=== PATIENT | female | born 1970 | race Caucasian/White ===

== ENCOUNTER 2017-03-06 11:52 | Emergency (ER) | payer OTHER ==
[~2017-03-06] VITALS: Ht 167.6 cm; Wt 66.7 kg
[~2017-03-06 11:52] MED LIST: AMOX1TAB64 PO; HYDR-3240 PO; HYDR-3307 PO; HYDR-882 PO; IRON PO; LACT1CAP35 PO; MESA400T2 PO; MESA800T2 PO; METH4TAB2; OXYC-229; OXYC-302; OXYC500S PO; OXYC5TAB3 PO; SULF1TAB23
[2017-03-06] MEDS ORDERED: ONDANSETRON 2MG/ML, 2ML IVPush ONE (14:00)
[2017-03-06] MEDS ORDERED: SODIUM CHLORIDE 0.9% 1,000ML IVBOLUS ONE (14:00)
[2017-03-06] MEDS ORDERED: HYDROmorphone 1 MG/ML, 1ML ONE ×2 (14:04→15:30)
[2017-03-06] MEDS ORDERED: ONDANSETRON 2MG/ML, 2ML ONE (14:05)
[2017-03-06] MEDS: HYDROmorphone 1 MG/ML, 1ML IVPush PRN ×2 (14:08→15:33)
[2017-03-06 14:30] LABS: BLOOD UREA NITROGEN 11 mg/dL (7-18)
[2017-03-06 14:32] LABS: ASPARTATE AMINO TRANSFERASE 26 U/L (15-37)
[2017-03-06] MEDS ORDERED: OMNIPAQUE 350 MG/ML, 100ML BOTTLE ONE (15:12)
[2017-03-06 15:57] VITALS: BP 104/65
== END 2017-03-06 15:08 | disposition home or self-care (01) ==
LOC: ED 13:29
DX: A08.39 Other viral enteritis (principal); E86.0 Dehydration; I10 Essential (primary) hypertension; Z90.49 Acquired absence of other specified parts of digestive tract; Z90.710 Acquired absence of both cervix and uterus; Z88.5 Allergy status to narcotic agent; Z88.6 Allergy status to analgesic agent
CPT/HCPCS: 36415; 74177; 80053; 81003; 83690; 85025; 96361; 96374; 96375; 96376; 99285; J1170; J2405; J7030; Q9967

== ENCOUNTER 2017-05-17 12:00 | Emergency (ER) | payer OTHER ==
[~2017-05-17] VITALS: Ht 167.6 cm; Wt 66.0 kg
[2017-05-17] MEDS ORDERED: SODIUM CHLORIDE 0.9% 1,000ML IVBOLUS ONE (13:00)
[2017-05-17] MEDS ORDERED: SODIUM CHLORIDE FLUSH 10ML SYR IVF ONE (13:00)
[2017-05-17] MEDS ORDERED: ONDANSETRON 2MG/ML, 2ML IVPush ONE (13:00)
[2017-05-17] MEDS ORDERED: KETOROLAC 30 MG/1 ML IVPush ONE (13:00)
[2017-05-17 13:05] LABS: HEMATOCRIT 37.8 % (34.6-47.8); HEMOGLOBIN 12.4 g/dL (11.7-16.4); WHITE BLOOD COUNT 4.9 x10^3/uL (3.4-10)
[2017-05-17] MEDS ORDERED: FENTANYL PF 100 MCG/2ML ONE (13:18)
[2017-05-17] MEDS ORDERED: ONDANSETRON 2MG/ML, 2ML ONE (13:18)
[2017-05-17 13:19] LABS: BLOOD UREA NITROGEN 11 mg/dL (7-18)
[2017-05-17 13:24] LABS: ASPARTATE AMINO TRANSFERASE 9 U/L (15-37)
[2017-05-17] MEDS ORDERED: FENTANYL PF 100 MCG/2ML IV ONE (13:30)
[2017-05-17 13:51] VITALS: BP 108/59
== END 2017-05-17 14:31 | disposition home or self-care (01) ==
LOC: ED 14:15
DX: K59.00 Constipation, unspecified (principal); K50.90 Crohn's disease, unspecified, without complications; G89.29 Other chronic pain; M54.9 Dorsalgia, unspecified; I10 Essential (primary) hypertension; F17.200 Nicotine dependence, unspecified, uncomplicated; Z90.49 Acquired absence of other specified parts of digestive tract; Z90.710 Acquired absence of both cervix and uterus
CPT/HCPCS: 36415; 74020; 80053; 83690; 85025; 85610; 96361; 96374; 96375; 99285; J2405; J3010; J7030

== ENCOUNTER 2017-08-14 17:02 | Inpatient (IN) | payer OTHER ==
[~2017-08-14] VITALS: Ht 167.6 cm; Wt 69.6 kg
[~2017-08-14 17:02] MED LIST changes: -OXYC-229; +OXYC-307
[2017-08-14] MEDS ORDERED: MESA800T2 PO (17:32)
[2017-08-14] MEDS ORDERED: SODIUM CHLORIDE 0.9% 1,000ML IVBOLUS ONE (18:00)
[2017-08-14] MEDS ORDERED: FAMOTIDINE 20 MG/2 ML IVP ONE (18:00)
[2017-08-14] MEDS ORDERED: SODIUM CHLORIDE FLUSH 10ML SYR IVF ONE (18:00)
[2017-08-14] MEDS ORDERED: HYDROmorphone 1 MG/ML, 1ML IV ONE ×2 (18:00→21:00)
[2017-08-14] MEDS ORDERED: ONDANSETRON 2MG/ML, 2ML IVPush ONE ×2 (18:00→21:00)
[2017-08-14] MEDS ORDERED: FAMOTIDINE 20 MG/2 ML ONE (18:24)
[2017-08-14] MEDS ORDERED: HYDROmorphone 1 MG/ML, 1ML ONE ×3 (18:24→20:36)
[2017-08-14] MEDS ORDERED: ONDANSETRON 2MG/ML, 2ML ONE ×2 (18:24→20:36)
[2017-08-14] MEDS ORDERED: BIFI4CAP PO (18:34)
[2017-08-14 18:37] LABS: HEMATOCRIT 36.7 % (34.6-47.8); HEMOGLOBIN 12.1 g/dL (11.7-16.4); WHITE BLOOD COUNT 4.6 x10^3/uL (3.4-10)
[2017-08-14 18:40] LABS: BLOOD UREA NITROGEN 11 mg/dL (7-18)
[2017-08-14 18:46] LABS: ASPARTATE AMINO TRANSFERASE 11 U/L (15-37)
[2017-08-14] MEDS ORDERED: PROMETHAZINE 25 MG/ML, 1ML ONE (19:49)
[2017-08-14] MEDS ORDERED: HYDROcodone/APAP 5/325 TABLET ONE (19:50)
[2017-08-14] MEDS ORDERED: PROMETHAZINE 25 MG/ML, 1ML IM ONE (20:00)
[2017-08-14] MEDS ORDERED: HYDROcodone/APAP 5/325 TABLET PO ONE (20:00)
[2017-08-14] MEDS ORDERED: METOCLOPRAMIDE 5 MG/ML, 2ML ONE (21:07)
[2017-08-14] MEDS ORDERED: METOCLOPRAMIDE 5 MG/ML, 2ML IVPush ONE (21:30)
[2017-08-14] MEDS ORDERED: hydrALAzine 20 MG/ML, 1ML IVPush PRN (21:30)
[2017-08-14] MEDS: SODIUM CHLORIDE 0.9% 1,000 ML IV SCH (22:52)
[2017-08-14] MEDS: METRONIDAZOLE PMX 500MG/100ML 100 ML IV SCH (23:13)
[2017-08-14] MEDS: ENOXAPARIN 40 MG/0.4 ML SQ SCH (23:13)
[2017-08-15] MEDS: HYDROmorphone 2 MG/ML, 1ML IVPush PRN ×8 (00:07→23:30)
[2017-08-15] MEDS: methylPREDNISolone SOD SUCC 125 MG/2 ML IVPush SCH ×5 (00:30→20:19)
[2017-08-15] MEDS: LEVOFLOXACIN/PMX 500MG/100ML 100 ML IV SCH ×2 (00:36→23:30)
[2017-08-15 00:39] VITALS: BP 105/66
[2017-08-15 02:26] VITALS: BP 112/76
[2017-08-15] MEDS: LORazepam 2 MG/ML, 1ML IVPush PRN (04:06)
[2017-08-15 05:21] LABS: HEMATOCRIT 33.6 % (34.6-47.8); HEMOGLOBIN 11.3 g/dL (11.7-16.4); WHITE BLOOD COUNT 4.7 x10^3/uL (3.4-10)
[2017-08-15 05:24] LABS: BLOOD UREA NITROGEN 11 mg/dL (7-18)
[2017-08-15 05:29] LABS: ASPARTATE AMINO TRANSFERASE 28 U/L (15-37)
[2017-08-15] MEDS: METRONIDAZOLE PMX 500MG/100ML 100 ML IV SCH ×3 (06:17→22:32)
[2017-08-15] MEDS ORDERED: ONDANSETRON 2MG/ML, 2ML ONE (07:40)
[2017-08-15] MEDS: ONDANSETRON 2MG/ML, 2ML IVPush PRN ×2 (07:46→13:03)
[2017-08-15 07:51] VITALS: BP 95/51
[2017-08-15] MEDS ORDERED: FLU VACC QS2017-18 (36MOS+) UP/PF 0.5 ML IM-VACC ONE (08:00)
[2017-08-15] MEDS: MESALAMINE 400 MG CAPSULE.DR PO SCH ×2 (08:13→20:12)
[2017-08-15] MEDS: PANTOPRAZOLE 40 MG IV IVPush SCH (08:14)
[2017-08-15] MEDS ORDERED: MAGNESIUM SULFATE PMX 2GM/50ML 50 ML IV ONE (09:30)
[2017-08-15] MEDS ORDERED: POTASSIUM PHOSPHATE 44 MEQ in SODIUM CHLORIDE 0.9% 500 ML IV ONE (09:30)
[2017-08-15] MEDS: SODIUM CHLORIDE 0.9% 1,000 ML IV SCH ×2 (13:03→20:12)
[2017-08-15 15:00] VITALS: BP 126/79
[2017-08-15 19:13] VITALS: BP 110/70
[2017-08-15] MEDS: ENOXAPARIN 40 MG/0.4 ML SQ SCH (20:12)
[2017-08-16] MEDS: HYDROmorphone 2 MG/ML, 1ML IVPush PRN ×2 (02:38→08:44)
[2017-08-16 02:43] VITALS: BP 116/72
[2017-08-16] MEDS: methylPREDNISolone SOD SUCC 125 MG/2 ML IVPush SCH ×2 (04:48→12:30)
[2017-08-16] MEDS: LORazepam 2 MG/ML, 1ML IVPush PRN (04:56)
[2017-08-16 05:03] LABS: HEMATOCRIT 34.5 % (34.6-47.8); HEMOGLOBIN 11.3 g/dL (11.7-16.4); WHITE BLOOD COUNT 9.6 x10^3/uL (3.4-10)
[2017-08-16 05:08] LABS: BLOOD UREA NITROGEN 6 mg/dL (7-18)
[2017-08-16 05:12] LABS: ASPARTATE AMINO TRANSFERASE 28 U/L (15-37)
[2017-08-16] MEDS: METRONIDAZOLE PMX 500MG/100ML 100 ML IV SCH (06:16)
[2017-08-16 07:05] VITALS: BP 101/61
[2017-08-16] MEDS: PANTOPRAZOLE 40 MG IV IVPush SCH (08:44)
[2017-08-16] MEDS: MESALAMINE 400 MG CAPSULE.DR PO SCH (08:44)
[2017-08-16] MEDS ORDERED: ACETAMINOPHEN 325 MG TABLET PO PRN (12:00)
[2017-08-16] MEDS ORDERED: METH4TAB2 PO (12:06)
[2017-08-16] MEDS ORDERED: METR500T PO (12:06)
[2017-08-16] MEDS ORDERED: LEVO750T6 PO (12:06)
== END 2017-08-16 12:38 | disposition home or self-care (01) | DRG 386 ==
LOC: ED 18:14 → 4NOR 22:04 → DCLOUNGE 08-16 12:35
PROVIDERS: ADMIT Family Medicine; ATTEND Family Medicine
DX: K50.111 Crohn's disease of large intestine with rectal bleeding (principal); E44.0 Moderate protein-calorie malnutrition; E83.39 Other disorders of phosphorus metabolism; E83.42 Hypomagnesemia; F11.20 Opioid dependence, uncomplicated; Z68.24 Body mass index [BMI] 24.0-24.9, adult; E86.0 Dehydration; F17.200 Nicotine dependence, unspecified, uncomplicated; G89.29 Other chronic pain; M54.9 Dorsalgia, unspecified; F41.9 Anxiety disorder, unspecified; I10 Essential (primary) hypertension; Z80.0 Family history of malignant neoplasm of digestive organs; Z83.3 Family history of diabetes mellitus; Z87.442 Personal history of urinary calculi
CPT/HCPCS: 36415; 74020; 80053; 81003; 83690; 83735; 84100; 84703; 85025; 85651; 86140; 90686; J1170; J1650; J1956; J2405; J2550; C9113; J2060; J2765; J2930; J3475; J7030; J7040; S0028

== ENCOUNTER 2017-09-14 12:28 | Emergency (ER) | payer OTHER ==
[~2017-09-14] VITALS: Ht 167.6 cm; Wt 67.0 kg
[~2017-09-14 12:28] MED LIST changes: +BIFI4CAP PO; +LEVO750T6 PO; +METH4TAB2 PO; +METR500T PO
[2017-09-14] MEDS ORDERED: SODIUM CHLORIDE FLUSH 10ML SYR IVF ONE (14:30)
[2017-09-14] MEDS ORDERED: ONDANSETRON 2MG/ML, 2ML IVPush ONE (14:30)
[2017-09-14] MEDS ORDERED: SODIUM CHLORIDE 0.9% 1,000ML IVBOLUS ONE (14:30)
[2017-09-14] MEDS ORDERED: HYDROmorphone 2 MG/ML, 1ML ONE ×2 (14:48→15:26)
[2017-09-14] MEDS ORDERED: ONDANSETRON 2MG/ML, 2ML ONE (14:48)
[2017-09-14] MEDS: HYDROmorphone 1 MG/ML, 1ML IVPush PRN ×2 (14:52→15:29)
[2017-09-14 15:01] LABS: HEMOGLOBIN 12.5 g/dL (11.7-16.4); WHITE BLOOD COUNT 7.7 x10^3/uL (3.4-10)
[2017-09-14 15:11] LABS: ASPARTATE AMINO TRANSFERASE 10 U/L (15-37); BLOOD UREA NITROGEN 10 mg/dL (7-18)
[2017-09-14 16:05] VITALS: BP 108/66
== END 2017-09-14 16:10 | disposition home or self-care (01) ==
LOC: ED 15:33
DX: K50.90 Crohn's disease, unspecified, without complications (principal); M54.9 Dorsalgia, unspecified; G89.29 Other chronic pain; I10 Essential (primary) hypertension; K59.00 Constipation, unspecified; Z90.49 Acquired absence of other specified parts of digestive tract; Z90.710 Acquired absence of both cervix and uterus
CPT/HCPCS: 36415; 74020; 80053; 83690; 85025; 96361; 96374; 96375; 96376; 99285; J1170; J2405; J7030

== ENCOUNTER 2017-09-16 10:24 | Inpatient (IN) | payer OTHER ==
[~2017-09-16] VITALS: Ht 167.6 cm; Wt 68.0 kg
[2017-09-16] MEDS ORDERED: DIPHENHYDRAMINE 50 MG/ML, 1ML ONE (11:11)
[2017-09-16] MEDS ORDERED: HYDROmorphone 2 MG/ML, 1ML ONE ×3 (11:11→23:27)
[2017-09-16] MEDS ORDERED: METOCLOPRAMIDE 5 MG/ML, 2ML ONE (11:11)
[2017-09-16] MEDS ORDERED: SODIUM CHLORIDE 0.9% 1,000ML IVBOLUS ONE (11:30)
[2017-09-16] MEDS ORDERED: METOCLOPRAMIDE 5 MG/ML, 2ML IVPush ONE (11:30)
[2017-09-16] MEDS ORDERED: SODIUM CHLORIDE FLUSH 10ML SYR IVF ONE (11:30)
[2017-09-16] MEDS ORDERED: DICYCLOMINE 10 MG/ML, 2ML IM ONE (11:30)
[2017-09-16] MEDS ORDERED: DIPHENHYDRAMINE 50 MG/ML, 1ML IVPush ONE (11:30)
[2017-09-16 11:48] LABS: HEMATOCRIT 41.3 % (34.6-47.8); HEMOGLOBIN 13.9 g/dL (11.7-16.4); WHITE BLOOD COUNT 19.5 x10^3/uL (3.4-10)
[2017-09-16 11:55] LABS: BLOOD UREA NITROGEN 14 mg/dL (7-18)
[2017-09-16 12:01] LABS: ASPARTATE AMINO TRANSFERASE 13 U/L (15-37)
[2017-09-16 12:02] LABS: DIFF TOTAL CELLS COUNTED 100 CELL DIFF
[2017-09-16 12:04] LABS: VERIFY COUNTS? YES
[2017-09-16] MEDS: HYDROmorphone 1 MG/ML, 1ML IVPush PRN ×2 (12:43→14:16)
[2017-09-16] MEDS ORDERED: OMNIPAQUE 350 MG/ML, 100ML BOTTLE ONE (13:06)
[2017-09-16] MEDS ORDERED: CIPROFLOXACIN/PMX 400MG/200ML 200 ML IV ONE (14:00)
[2017-09-16] MEDS ORDERED: METRONIDAZOLE PMX 500MG/100ML 100 ML IV ONE (14:00)
[2017-09-16] MEDS ORDERED: METRONIDAZOLE PMX 500MG/100ML 100 ML ONE (14:07)
[2017-09-16] MEDS ORDERED: DICYCLOMINE 10 MG/ML, 2ML ONE (14:08)
[2017-09-16] MEDS ORDERED: HYDROcodone/APAP 5/325 TABLET PO PRN (15:00)
[2017-09-16] MEDS ORDERED: POLYETHYLENE GLYCOL 17 GM PACKET PO PRN (15:00)
[2017-09-16] MEDS ORDERED: ONDANSETRON 2MG/ML, 2ML IVPush PRN (15:00)
[2017-09-16] MEDS ORDERED: LABETALOL 5MG/ML, 20ML IVPush PRN (15:00)
[2017-09-16] MEDS ORDERED: GUAIFENESIN/DM 200-20MG, 10ML UDC PO PRN (15:00)
[2017-09-16] MEDS ORDERED: morphine SULFATE 10 MG/ML, 1ML IVPush PRN (15:00)
[2017-09-16] MEDS ORDERED: ONDANSETRON ODT 4 MG PO PRN (15:00)
[2017-09-16] MEDS: methylPREDNISolone SOD SUCC 40 MG/ML IV SCH (16:50)
[2017-09-16] MEDS: D5%-0.45% NACL 1,000 ML IV SCH (16:55)
[2017-09-16] MEDS: HYDROmorphone 1 MG/ML, 1ML IV PRN ×2 (19:16→23:35)
[2017-09-16 19:24] VITALS: BP 107/64
[2017-09-16] MEDS: MESALAMINE 800 MG PO SCH (21:00)
[2017-09-16] MEDS: CEFTRIAXONE PMX 1GM/50ML 50 ML IV SCH (22:56)
[2017-09-16] MEDS: METRONIDAZOLE PMX 500MG/100ML 100 ML IV SCH (23:34)
[2017-09-17 03:11] VITALS: BP 98/59
[2017-09-17] MEDS ORDERED: HYDROmorphone 2 MG/ML, 1ML ONE ×4 (03:29→20:39)
[2017-09-17] MEDS: methylPREDNISolone SOD SUCC 40 MG/ML IV SCH ×2 (03:37→16:32)
[2017-09-17] MEDS: HYDROmorphone 1 MG/ML, 1ML IV PRN ×5 (03:37→20:43)
[2017-09-17] MEDS: D5%-0.45% NACL 1,000 ML IV SCH ×2 (03:38→11:53)
[2017-09-17 05:13] LABS: HEMOGLOBIN 12.2 g/dL (11.7-16.4); WHITE BLOOD COUNT 14.7 x10^3/uL (3.4-10)
[2017-09-17 05:25] LABS: ASPARTATE AMINO TRANSFERASE 14 U/L (15-37); BLOOD UREA NITROGEN 10 mg/dL (7-18)
[2017-09-17 06:57] VITALS: BP 91/53
[2017-09-17] MEDS: OMEPRAZOLE 20 MG CAPSULE.DR PO SCH (07:45)
[2017-09-17] MEDS: METRONIDAZOLE PMX 500MG/100ML 100 ML IV SCH ×2 (07:45→16:27)
[2017-09-17] MEDS: SENNA/DOCUSATE TABLET PO SCH (07:46)
[2017-09-17] MEDS: MESALAMINE 800 MG PO SCH ×2 (07:46→19:39)
[2017-09-17] MEDS: BIFIDOBACTERIUM INFANTIS 4 MG PO SCH (07:46)
[2017-09-17 12:27] VITALS: BP 110/65
[2017-09-17] MEDS: CEFTRIAXONE PMX 1GM/50ML 50 ML IV SCH (19:42)
[2017-09-17 20:22] VITALS: BP 105/68
[2017-09-18] MEDS: D5%-0.45% NACL 1,000 ML IV SCH (00:01)
[2017-09-18] MEDS ORDERED: HYDROmorphone 2 MG/ML, 1ML ONE ×3 (00:54→08:54)
[2017-09-18] MEDS: HYDROmorphone 1 MG/ML, 1ML IV PRN ×3 (00:59→09:01)
[2017-09-18 01:33] VITALS: BP 104/68
[2017-09-18] MEDS: methylPREDNISolone SOD SUCC 40 MG/ML IV SCH ×2 (04:14→15:22)
[2017-09-18 06:58] LABS: ASPARTATE AMINO TRANSFERASE 9 U/L (15-37); BLOOD UREA NITROGEN 4 mg/dL (7-18)
[2017-09-18 07:23] VITALS: BP 110/70
[2017-09-18] MEDS: BIFIDOBACTERIUM INFANTIS 4 MG PO SCH (08:55)
[2017-09-18] MEDS: MESALAMINE 800 MG PO SCH (08:56)
[2017-09-18] MEDS: OMEPRAZOLE 20 MG CAPSULE.DR PO SCH (09:00)
[2017-09-18] MEDS: SENNA/DOCUSATE TABLET PO SCH (09:00)
[2017-09-18] MEDS: METRONIDAZOLE PMX 500MG/100ML 100 ML IV SCH ×3 (09:00→15:22)
[2017-09-18] MEDS ORDERED: HYDROmorphone 2MG TABLET PO PRN (09:30)
[2017-09-18 10:07] LABS: HEMATOCRIT 35.2 % (34.6-47.8); HEMOGLOBIN 11.7 g/dL (11.7-16.4); WHITE BLOOD COUNT 13.4 x10^3/uL (3.4-10)
[2017-09-18 14:41] VITALS: BP 123/75
[2017-09-18] MEDS ORDERED: METR500T PO (15:27)
[2017-09-18] MEDS ORDERED: CIPR500T87 PO (15:27)
[2017-09-18] MEDS ORDERED: OMEP-110 PO (16:59)
== END 2017-09-18 16:09 | disposition home or self-care (01) | DRG 871 ==
LOC: ED 12:43 → EDIP 13:54 → 3NE 15:49
PROVIDERS: ADMIT Hospitalist; ATTEND Hospitalist
DX: A41.9 Sepsis, unspecified organism (principal); E43 Unspecified severe protein-calorie malnutrition; E87.0 Hyperosmolality and hypernatremia; E87.1 Hypo-osmolality and hyponatremia; F11.20 Opioid dependence, uncomplicated; K50.10 Crohn's disease of large intestine without complications; A09 Infectious gastroenteritis and colitis, unspecified; F17.210 Nicotine dependence, cigarettes, uncomplicated; G89.29 Other chronic pain; I10 Essential (primary) hypertension; K57.90 Diverticulosis of intestine, part unspecified, without perforation or abscess without bleeding; K59.00 Constipation, unspecified; M19.90 Unspecified osteoarthritis, unspecified site; Z80.0 Family history of malignant neoplasm of digestive organs; Z87.442 Personal history of urinary calculi; Z90.710 Acquired absence of both cervix and uterus; Z90.49 Acquired absence of other specified parts of digestive tract; Z68.24 Body mass index [BMI] 24.0-24.9, adult; Z88.5 Allergy status to narcotic agent; Z88.8 Allergy status to other drugs, medicaments and biological substances
CPT/HCPCS: 36415; 74177; 80053; 81003; 83605; 83690; 83735; 84703; 85025; 86140; 87040; 87324; J0696; J0744; J1170; J2405; Q9967; J0500; J1200; J2765; J2920; J7030

== ENCOUNTER 2017-09-24 18:16 | Emergency (ER) | payer OTHER ==
[~2017-09-24] VITALS: Ht 170.2 cm; Wt 64.0 kg
[~2017-09-24 18:16] MED LIST changes: +CIPR500T87 PO; +OMEP-110 PO
[2017-09-24] MEDS ORDERED: ONDANSETRON 2MG/ML, 2ML IVPush ONE (19:00)
[2017-09-24] MEDS ORDERED: SODIUM CHLORIDE 0.9% 1,000ML IVBOLUS ONE (19:00)
[2017-09-24] MEDS ORDERED: SODIUM CHLORIDE FLUSH 10ML SYR IVF ONE (19:00)
[2017-09-24] MEDS ORDERED: ONDANSETRON 2MG/ML, 2ML ONE (19:14)
[2017-09-24] MEDS ORDERED: HYDROmorphone 2 MG/ML, 1ML ONE ×2 (19:15→20:55)
[2017-09-24 19:16] LABS: BASOPHILS # (AUTO) 0.02 x10^3/uL (0-0.1); BASOPHILS % (AUTO) 0 % (0-1); EOSINOPHILS # (AUTO) 0.05 x10^3/uL (0-0.4); EOSINOPHILS % (AUTO) 1 % (1-7); LYMPHOCYTES % (AUTO) 21 % (22-44); MD NO; MEAN CORPUSCULAR HGB CONC 32.6 g/dL (32.4-35.8); MONOCYTES # (AUTO) 0.76 x10^3/uL (0.2-0.8); MONOCYTES % (AUTO) 14 % (2-9); NEUTROPHILS % (AUTO) 64 % (42-75); PLATELET COUNT 430 x10^3/uL (130-400); RED BLOOD COUNT 4.18 x10^6/uL (3.82-5.3); RED CELL DISTRIBUTION WIDTH 14.6 % (9.6-15.2)
[2017-09-24 19:25] LABS: ALANINE AMINOTRANSFERASE 18 U/L (12-78); ALBUMIN 3.3 g/dL (3.4-5.0); ANION GAP 11 mmol/L (5-15); CALCIUM 8.4 mg/dL (8.5-10.1); CHLORIDE 107 mmol/L (98-107); CREATININE 0.74 mg/dL (0.55-1.02)
[2017-09-24 19:30] LABS: ALKALINE PHOSPHATASE 67 U/L (45-117); BILIRUBIN,TOTAL 0.3 mg/dL (0.2-1.0); TOTAL PROTEIN 7.4 g/dL (6.4-8.2)
[2017-09-24] MEDS ORDERED: HYDROmorphone 1 MG/ML, 1ML IV ONE (19:30)
[2017-09-24] MEDS ORDERED: OMNIPAQUE 350 MG/ML, 100ML BOTTLE ONE (20:00)
[2017-09-24] MEDS ORDERED: DICYCLOMINE 10 MG/ML, 2ML ONE (21:21)
[2017-09-24 21:28] LABS: MICROSCOPIC NOT IND
[2017-09-24 21:30] LABS: CULTURE INDICATED? NO
[2017-09-24] MEDS ORDERED: HYDROmorphone 1 MG/ML, 1ML IVPush PRN (21:30)
[2017-09-24] MEDS ORDERED: DICYCLOMINE 10 MG/ML, 2ML IM ONE (21:30)
[2017-09-24 21:54] VITALS: BP 136/82
== END 2017-09-24 21:59 | disposition home or self-care (01) ==
LOC: ED 19:50
DX: K52.9 Noninfective gastroenteritis and colitis, unspecified (principal); K59.00 Constipation, unspecified; I10 Essential (primary) hypertension; G89.29 Other chronic pain; F17.210 Nicotine dependence, cigarettes, uncomplicated
CPT/HCPCS: 36415; 74020; 74177; 80053; 81003; 83690; 84703; 85025; 96361; 96372; 96374; 96375; 96376; 99285; J0500; J1170; J2405; J7030; Q9967

== ENCOUNTER 2018-01-12 18:23 | Emergency (ER) | payer OTHER ==
[~2018-01-12] VITALS: Ht 167.6 cm; Wt 65.4 kg
[2018-01-12] MEDS ORDERED: METOCLOPRAMIDE 5 MG/ML, 2ML IVPush ONE (19:30)
[2018-01-12] MEDS ORDERED: SODIUM CHLORIDE 0.9% 1,000ML IVBOLUS ONE (19:30)
[2018-01-12] MEDS ORDERED: FENTANYL PF 100 MCG/2ML IVPush PRN (19:30)
[2018-01-12] MEDS ORDERED: SODIUM CHLORIDE FLUSH 10ML SYR IVF ONE (19:30)
[2018-01-12 19:36] LABS: MICROSCOPIC NOT IND
[2018-01-12] MEDS ORDERED: FENTANYL PF 100 MCG/2ML ONE (19:44)
[2018-01-12] MEDS ORDERED: METOCLOPRAMIDE 5 MG/ML, 2ML ONE (19:44)
[2018-01-12 19:49] LABS: BASOPHILS # (AUTO) 0.06 x10^3/uL (0-0.1); BASOPHILS % (AUTO) 1 % (0-1); EOSINOPHILS # (AUTO) 0.12 x10^3/uL (0-0.4); EOSINOPHILS % (AUTO) 2 % (1-7); LYMPHOCYTES # (AUTO) 2.33 x10^3/uL (1-3.4); LYMPHOCYTES % (AUTO) 32 % (22-44); MD NO; MEAN CORPUSCULAR HEMOGLOBIN 31.8 pg (27.0-34.8); MEAN CORPUSCULAR HGB CONC 33.1 g/dL (32.4-35.8); MEAN PLATELET VOLUME 7.6 fL (7.4-10.4); MONOCYTES # (AUTO) 0.45 x10^3/uL (0.2-0.8); MONOCYTES % (AUTO) 6 % (2-9); NEUTROPHILS # (AUTO) 4.38 x10^3/uL (1.8-6.8); NEUTROPHILS % (AUTO) 60 % (42-75); PLATELET COUNT 381 x10^3/uL (130-400); RED BLOOD COUNT 4.39 x10^6/uL (3.82-5.3); RED CELL DISTRIBUTION WIDTH 14.6 % (9.6-15.2)
[2018-01-12 19:49] LABS: CULTURE INDICATED? NO
[2018-01-12 19:58] LABS: ALBUMIN 4.4 g/dL (3.4-5.0); ANION GAP 8 mmol/L (5-15); CALCIUM 8.8 mg/dL (8.5-10.1); CHLORIDE 107 mmol/L (98-107)
[2018-01-12 20:05] LABS: ALANINE AMINOTRANSFERASE 20 U/L (12-78); ALKALINE PHOSPHATASE 89 U/L (45-117); BILIRUBIN,TOTAL 0.6 mg/dL (0.2-1.0); CREATININE 0.73 mg/dL (0.55-1.02); TOTAL PROTEIN 7.9 g/dL (6.4-8.2)
[2018-01-12 21:10] VITALS: BP 124/81
== END 2018-01-12 21:12 | disposition home or self-care (01) ==
LOC: ED 21:00
DX: R11.2 Nausea with vomiting, unspecified (principal); G89.29 Other chronic pain; M54.9 Dorsalgia, unspecified; I10 Essential (primary) hypertension; K50.90 Crohn's disease, unspecified, without complications; Z90.49 Acquired absence of other specified parts of digestive tract; F17.200 Nicotine dependence, unspecified, uncomplicated
CPT/HCPCS: 36415; 74021; 80053; 81003; 84703; 85025; 96374; 96375; 99285; J2765; J3010; J7030

== ENCOUNTER 2018-06-13 16:55 | Emergency (ER) | payer OTHER ==
[~2018-06-13] VITALS: Ht 170.2 cm; Wt 59.6 kg
[2018-06-13] MEDS ORDERED: SODIUM CHLORIDE 0.9% 1,000 ML IV ONE (17:08)
[2018-06-13 17:48] LABS: ALANINE AMINOTRANSFERASE 219 U/L (12-78); ALBUMIN 3.3 g/dL (3.4-5.0); ANION GAP 7 mmol/L (5-15); CALCIUM 8.1 mg/dL (8.5-10.1); CHLORIDE 111 mmol/L (98-107); CREATININE 0.64 mg/dL (0.55-1.02)
[2018-06-13 17:50] LABS: ALKALINE PHOSPHATASE 79 U/L (45-117); BILIRUBIN,TOTAL 0.4 mg/dL (0.2-1.0); TOTAL PROTEIN 6.5 g/dL (6.4-8.2)
[2018-06-13 17:52] LABS: BASOPHILS # (AUTO) 0.05 x10^3/uL (0-0.1); BASOPHILS % (AUTO) 1 % (0-1); EOSINOPHILS # (AUTO) 0.14 x10^3/uL (0-0.4); EOSINOPHILS % (AUTO) 3 % (1-7); LYMPHOCYTES % (AUTO) 44 % (22-44); MD NO; MEAN CORPUSCULAR HEMOGLOBIN 32.5 pg (27.0-34.8); MEAN CORPUSCULAR HGB CONC 33.1 g/dL (32.4-35.8); MEAN CORPUSCULAR VOLUME 98.1 fL (80-100); MEAN PLATELET VOLUME 7.7 fL (7.4-10.4); MONOCYTES # (AUTO) 0.37 x10^3/uL (0.2-0.8); MONOCYTES % (AUTO) 8 % (2-9); NEUTROPHILS # (AUTO) 2.02 x10^3/uL (1.8-6.8); NEUTROPHILS % (AUTO) 44 % (42-75); PLATELET COUNT 309 x10^3/uL (130-400); RED BLOOD COUNT 4.05 x10^6/uL (3.82-5.3); RED CELL DISTRIBUTION WIDTH 13.3 % (9.6-15.2)
[2018-06-13 18:33] LABS: MICROSCOPIC INDICATED
[2018-06-13 18:54] LABS: CULTURE INDICATED? YES
[2018-06-13] MEDS ORDERED: ONDANSETRON ODT 4 MG ONE (19:00)
[2018-06-13] MEDS ORDERED: HYDROmorphone 2 MG/ML, 1ML IVPush PRN (19:00)
[2018-06-13] MEDS ORDERED: MAGNESIUM CITRATE 300ML ORAL SOL ONE (19:00)
[2018-06-13] MEDS ORDERED: SODIUM CHLORIDE 0.9% 1,000ML IVBOLUS ONE (19:00)
[2018-06-13] MEDS ORDERED: MAGNESIUM CITRATE 300ML ORAL SOL PO ONE (19:00)
[2018-06-13] MEDS ORDERED: ONDANSETRON ODT 4 MG PO ONE (19:00)
[2018-06-13] MEDS ORDERED: HYDROmorphone 2 MG/ML, 1ML ONE ×2 (19:01→20:55)
[2018-06-13] MEDS ORDERED: PROCHLORPERAZINE 5 MG/ML, 2ML ONE (20:55)
[2018-06-13] MEDS ORDERED: PROCHLORPERAZINE 5 MG/ML, 2ML IM ONE (21:00)
[2018-06-13] MEDS ORDERED: HYDROmorphone 2 MG/ML, 1ML IM ONE (21:00)
[2018-06-13 21:56] VITALS: BP 120/84
== END 2018-06-13 22:29 | disposition home or self-care (01) ==
LOC: ED 21:30
DX: K50.10 Crohn's disease of large intestine without complications (principal); K59.00 Constipation, unspecified; R10.84 Generalized abdominal pain; I10 Essential (primary) hypertension; Z90.49 Acquired absence of other specified parts of digestive tract; F17.200 Nicotine dependence, unspecified, uncomplicated
CPT/HCPCS: 36415; 74022; 80053; 81001; 83690; 85025; 87086; 96374; 99285; J1170; Q0162

== ENCOUNTER 2018-07-13 17:10 | Inpatient (IN) | payer OTHER ==
[~2018-07-13] VITALS: Ht 170.2 cm; Wt 63.7 kg
[~2018-07-13 17:10] MED LIST changes: +HYDR-3653 PO; -HYDR-882 PO
[2018-07-13] MEDS ORDERED: SODIUM CHLORIDE 0.9% 1,000ML IVBOLUS ONE (17:30)
[2018-07-13] MEDS ORDERED: FENTANYL PF 100 MCG/2ML IV ONE ×2 (17:30→21:00)
[2018-07-13] MEDS ORDERED: SODIUM CHLORIDE FLUSH 10ML SYR IVF ONE (17:30)
[2018-07-13] MEDS ORDERED: FENTANYL PF 100 MCG/2ML ONE ×2 (17:39→21:01)
[2018-07-13 18:07] LABS: BASOPHILS # (AUTO) 0.02 x10^3/uL (0-0.1); BASOPHILS % (AUTO) 0 % (0-1); EOSINOPHILS # (AUTO) 0.21 x10^3/uL (0-0.4); EOSINOPHILS % (AUTO) 2 % (1-7); LYMPHOCYTES % (AUTO) 12 % (22-44); MD NO; MEAN CORPUSCULAR HEMOGLOBIN 32.3 pg (27.0-34.8); MEAN CORPUSCULAR HGB CONC 33.2 g/dL (32.4-35.8); MEAN CORPUSCULAR VOLUME 97.3 fL (80-100); MEAN PLATELET VOLUME 8.2 fL (7.4-10.4); MONOCYTES # (AUTO) 0.36 x10^3/uL (0.2-0.8); MONOCYTES % (AUTO) 3 % (2-9); NEUTROPHILS # (AUTO) 8.84 x10^3/uL (1.8-6.8); NEUTROPHILS % (AUTO) 82 % (42-75); PLATELET COUNT 172 x10^3/uL (130-400); RED BLOOD COUNT 4.13 x10^6/uL (3.82-5.3); RED CELL DISTRIBUTION WIDTH 13.8 % (9.6-15.2)
[2018-07-13 18:21] LABS: TROPONIN I 0.041 ng/mL (0.000-0.045)
[2018-07-13 18:30] LABS: ALBUMIN 3.5 g/dL (3.4-5.0); ANION GAP 9 mmol/L (5-15); CALCIUM 8.4 mg/dL (8.5-10.1); CHLORIDE 106 mmol/L (98-107)
[2018-07-13 18:45] LABS: ALANINE AMINOTRANSFERASE 3655 U/L (12-78); ALKALINE PHOSPHATASE 149 U/L (45-117); BILIRUBIN,TOTAL 3.7 mg/dL (0.2-1.0); TOTAL PROTEIN 6.3 g/dL (6.4-8.2)
[2018-07-13 19:13] LABS: HCG UR SG 1.018 (1.003-1.030)
[2018-07-13 19:14] LABS: CULTURE INDICATED? YES; MICROSCOPIC INDICATED
[2018-07-13] MEDS ORDERED: POTASSIUM CHLORIDE 40 MEQ in SODIUM CHLORIDE 0.9% 500 ML IV ONE (19:30)
[2018-07-13 22:10] VITALS: BP 110/75
[2018-07-13] MEDS ORDERED: MESALAMINE 800 MG PO SCH (23:30)
[2018-07-13] MEDS ORDERED: POTASSIUM CHLORIDE 20 MEQ TAB.ER.PRT PO ONE (23:30)
[2018-07-13] MEDS ORDERED: LIDODERM 5% PATCH TD PRN (23:30)
[2018-07-13] MEDS ORDERED: ONDANSETRON 2MG/ML, 2ML IVPush PRN (23:30)
[2018-07-14] MEDS: HYDROmorphone 2 MG/ML, 1ML IVPush PRN ×7 (00:38→22:53)
[2018-07-14 01:26] LABS: TROPONIN I 0.035 ng/mL (0.000-0.045)
[2018-07-14 01:42] VITALS: BP 114/75
[2018-07-14 05:29] LABS: ANION GAP 8 mmol/L (5-15); CALCIUM 8.1 mg/dL (8.5-10.1); CHLORIDE 107 mmol/L (98-107); CREATININE 0.53 mg/dL (0.55-1.02)
[2018-07-14 08:15] VITALS: BP 127/80
[2018-07-14] MEDS: MESALAMINE 800 MG HOMEMEDPO SCH ×2 (08:16→21:00)
[2018-07-14] MEDS: FLORASTOR 250 MG CAPSULE PO SCH (08:16)
[2018-07-14] MEDS: OMEPRAZOLE 20 MG CAPSULE.DR PO SCH (08:16)
[2018-07-14] MEDS ORDERED: MAGNESIUM SULFATE PMX 2GM/50ML 50 ML IV ONE (09:30)
[2018-07-14] MEDS ORDERED: POTASSIUM CHLORIDE 20 MEQ TAB.ER.PRT PO ONE (09:30)
[2018-07-14 15:16] VITALS: BP 126/85
[2018-07-14 19:43] VITALS: BP 119/79
[2018-07-15 01:17] VITALS: BP 115/75
[2018-07-15] MEDS: HYDROmorphone 2 MG/ML, 1ML IVPush PRN ×3 (04:09→12:27)
[2018-07-15 08:02] VITALS: BP 116/75
[2018-07-15] MEDS: MESALAMINE 800 MG HOMEMEDPO SCH ×2 (08:39→21:00)
[2018-07-15 09:41] LABS: ALBUMIN 2.8 g/dL (3.4-5.0); ANION GAP 6 mmol/L (5-15); CALCIUM 7.9 mg/dL (8.5-10.1); CHLORIDE 109 mmol/L (98-107); CREATININE 0.45 mg/dL (0.55-1.02)
[2018-07-15 09:48] LABS: ALANINE AMINOTRANSFERASE 1985 U/L (12-78); ALKALINE PHOSPHATASE 127 U/L (45-117); BILIRUBIN,TOTAL 1.4 mg/dL (0.2-1.0); TOTAL PROTEIN 5.4 g/dL (6.4-8.2)
[2018-07-15 09:49] LABS: BASOPHILS # (AUTO) 0.02 x10^3/uL (0-0.1); BASOPHILS % (AUTO) 0 % (0-1); EOSINOPHILS # (AUTO) 0.42 x10^3/uL (0-0.4); EOSINOPHILS % (AUTO) 8 % (1-7); LYMPHOCYTES # (AUTO) 1.45 x10^3/uL (1-3.4); LYMPHOCYTES % (AUTO) 27 % (22-44); MD NO; MEAN CORPUSCULAR HEMOGLOBIN 31.7 pg (27.0-34.8); MEAN CORPUSCULAR HGB CONC 32.7 g/dL (32.4-35.8); MEAN CORPUSCULAR VOLUME 97.1 fL (80-100); MEAN PLATELET VOLUME 7.9 fL (7.4-10.4); MONOCYTES # (AUTO) 0.18 x10^3/uL (0.2-0.8); MONOCYTES % (AUTO) 3 % (2-9); NEUTROPHILS # (AUTO) 3.42 x10^3/uL (1.8-6.8); NEUTROPHILS % (AUTO) 62 % (42-75); PLATELET COUNT 154 x10^3/uL (130-400); RED BLOOD COUNT 3.77 x10^6/uL (3.82-5.3); RED CELL DISTRIBUTION WIDTH 14.1 % (9.6-15.2)
[2018-07-15] MEDS: OMEPRAZOLE 20 MG CAPSULE.DR PO SCH (10:42)
[2018-07-15] MEDS: FLORASTOR 250 MG CAPSULE PO SCH (10:42)
[2018-07-15 12:17] VITALS: BP 115/73
[2018-07-15] MEDS: HYDROcodone/APAP 10/325 MG TABLET PO PRN ×2 (16:18→20:27)
[2018-07-15 19:09] VITALS: BP 118/79
[2018-07-16] MEDS: HYDROcodone/APAP 10/325 MG TABLET PO PRN ×2 (00:46→04:54)
[2018-07-16 01:01] VITALS: BP 113/74
[2018-07-16 05:47] LABS: ALBUMIN 2.2 g/dL (3.4-5.0); ANION GAP 7 mmol/L (5-15); CHLORIDE 113 mmol/L (98-107)
[2018-07-16 05:57] LABS: ALANINE AMINOTRANSFERASE 1285 U/L (12-78); ALKALINE PHOSPHATASE 113 U/L (45-117); BILIRUBIN,TOTAL 1.2 mg/dL (0.2-1.0); CALCIUM 7.6 mg/dL (8.5-10.1); TOTAL PROTEIN 4.8 g/dL (6.4-8.2)
[2018-07-16 05:59] LABS: AMPHETAMINE SCREEN, URINE Negative (Negative); BARBITURATE SCREEN, URINE Negative (Negative)
[2018-07-16 06:03] LABS: MEAN CORPUSCULAR HEMOGLOBIN 32.4 pg (27.0-34.8); MEAN CORPUSCULAR HGB CONC 33.3 g/dL (32.4-35.8); MEAN CORPUSCULAR VOLUME 97.3 fL (80-100); MEAN PLATELET VOLUME 8.3 fL (7.4-10.4); PLATELET COUNT 146 x10^3/uL (130-400); RED BLOOD COUNT 3.37 x10^6/uL (3.82-5.3); RED CELL DISTRIBUTION WIDTH 14.1 % (9.6-15.2)
[2018-07-16 06:03] LABS: BENZODIAZEPINE SCREEN, URINE Negative (Negative); CANNABINOID SCREEN, URINE Negative (Negative); COCAINE SCREEN, URINE Negative (Negative); METHADONE SCREEN, URINE Negative (Negative); OPIATE SCREEN, URINE Positive (Negative)
[2018-07-16 06:52] VITALS: BP 100/65
[2018-07-16] MEDS ORDERED: SODIUM CHLORIDE 0.45% 1,000 ML IV SCH (07:00)
[2018-07-16 07:01] LABS: MD YES
[2018-07-16 07:05] LABS: <PLATELET ESTIMATE> ADEQUATE; <PLT MORPHOLOGY> NORMAL PLT MORPH; <RBC MORPHOLOGY> NORMAL; EOS#(MANUAL) 0.34 x10^3/uL (0.0-0.4); EOS% (MANUAL) 10 % (1-7); LYMPHS% (MANUAL) 44 % (22-44); MONOS#(MANUAL) 0.14 x10^3/uL (0.3-2.7); MONOS% (MANUAL) 4 % (2-9); SEG#(MANUAL) 1.43 x10^3/uL (1.8-6.8); SEGS% (MANUAL) 42 % (42-75)
[2018-07-16 07:36] LABS: INTERNATIONAL NORMALIZED RATIO 1.2 (0.93-1.1); PROTHROMBIN TIME 12.3 Seconds (9.6-11.5)
[2018-07-16] MEDS: OMEPRAZOLE 20 MG CAPSULE.DR PO SCH (09:00)
[2018-07-16] MEDS: OXYcodone IR 5MG TABLET PO PRN ×3 (09:00→19:56)
[2018-07-16] MEDS: FLORASTOR 250 MG CAPSULE PO SCH (09:00)
[2018-07-16] MEDS: POTASSIUM CHLORIDE 20 MEQ TAB.ER.PRT PO SCH ×2 (09:00→17:50)
[2018-07-16] MEDS: MESALAMINE 800 MG HOMEMEDPO SCH ×2 (09:00→21:00)
[2018-07-16] MEDS ORDERED: DEXTROSE 5% IV ONE ×3 (12:30→17:30)
[2018-07-16] MEDS ORDERED: ACETYLCYSTEINE IV ONE ×3 (12:30→17:30)
[2018-07-16] MEDS: HEPARIN 5,000 UNITS/ML, 1ML SQ SCH ×2 (13:00→19:56)
[2018-07-16 13:32] VITALS: BP 110/74
[2018-07-16] MEDS ORDERED: HYDROmorphone 2 MG/ML, 1ML ONE ×2 (17:47→23:05)
[2018-07-16] MEDS ORDERED: HYDROmorphone 1 MG/ML, 1ML IM PRN (18:00)
[2018-07-16 18:36] LABS: ALBUMIN 2.6 g/dL (3.4-5.0); ANION GAP 6 mmol/L (5-15); CALCIUM 7.6 mg/dL (8.5-10.1); CHLORIDE 113 mmol/L (98-107); CREATININE 0.48 mg/dL (0.55-1.02)
[2018-07-16 18:43] LABS: ALANINE AMINOTRANSFERASE 1363 U/L (12-78); ALKALINE PHOSPHATASE 120 U/L (45-117); BILIRUBIN,TOTAL 1.3 mg/dL (0.2-1.0); TOTAL PROTEIN 5.5 g/dL (6.4-8.2)
[2018-07-16] MEDS: DOCUSATE 100 MG CAPSULE PO SCH (19:56)
[2018-07-16 21:48] VITALS: BP 126/86
[2018-07-17 00:59] VITALS: BP 135/89
[2018-07-17] MEDS: HEPARIN 5,000 UNITS/ML, 1ML SQ SCH ×3 (05:17→21:00)
[2018-07-17] MEDS: OXYcodone IR 5MG TABLET PO PRN ×3 (05:18→23:07)
[2018-07-17 05:44] LABS: BASOPHILS # (AUTO) 0.03 x10^3/uL (0-0.1); BASOPHILS % (AUTO) 1 % (0-1); EOSINOPHILS # (AUTO) 0.27 x10^3/uL (0-0.4); EOSINOPHILS % (AUTO) 8 % (1-7); LYMPHOCYTES # (AUTO) 1.96 x10^3/uL (1-3.4); LYMPHOCYTES % (AUTO) 54 % (22-44); MD NO; MEAN CORPUSCULAR HEMOGLOBIN 32.3 pg (27.0-34.8); MEAN CORPUSCULAR VOLUME 97.7 fL (80-100); MEAN PLATELET VOLUME 8.1 fL (7.4-10.4); MONOCYTES # (AUTO) 0.26 x10^3/uL (0.2-0.8); MONOCYTES % (AUTO) 7 % (2-9); NEUTROPHILS # (AUTO) 1.11 x10^3/uL (1.8-6.8); NEUTROPHILS % (AUTO) 31 % (42-75); PLATELET COUNT 148 x10^3/uL (130-400); RED BLOOD COUNT 3.27 x10^6/uL (3.82-5.3); RED CELL DISTRIBUTION WIDTH 14.9 % (9.6-15.2)
[2018-07-17 05:55] LABS: ALBUMIN 2.3 g/dL (3.4-5.0); ANION GAP 6 mmol/L (5-15); CALCIUM 7.5 mg/dL (8.5-10.1); CHLORIDE 112 mmol/L (98-107)
[2018-07-17 06:05] LABS: ALANINE AMINOTRANSFERASE 1122 U/L (12-78); ALKALINE PHOSPHATASE 103 U/L (45-117); BILIRUBIN,TOTAL 1.1 mg/dL (0.2-1.0); CREATININE 0.36 mg/dL (0.55-1.02)
[2018-07-17 06:34] VITALS: BP 105/65
[2018-07-17] MEDS ORDERED: MAGNESIUM SULFATE PMX 2GM/50ML 50 ML IV ONE (07:00)
[2018-07-17] MEDS: MESALAMINE 800 MG HOMEMEDPO SCH ×2 (07:59→21:00)
[2018-07-17] MEDS: OMEPRAZOLE 20 MG CAPSULE.DR PO SCH (08:06)
[2018-07-17] MEDS: FLORASTOR 250 MG CAPSULE PO SCH (08:06)
[2018-07-17] MEDS: POTASSIUM CHLORIDE 20 MEQ TAB.ER.PRT PO SCH ×2 (08:06→17:22)
[2018-07-17] MEDS: DOCUSATE 100 MG CAPSULE PO SCH ×2 (08:06→21:06)
[2018-07-17] MEDS ORDERED: HYDROmorphone 2 MG/ML, 1ML IVPush PRN (10:00)
[2018-07-17] MEDS: HYDROmorphone 2 MG/ML, 1ML IVPush PRN ×3 (10:43→21:32)
[2018-07-17] MEDS ORDERED: ACETYLCYSTEINE IV SCH (11:00)
[2018-07-17] MEDS ORDERED: DEXTROSE 5% IV SCH (11:00)
[2018-07-17 13:06] VITALS: BP 112/72
[2018-07-17] MEDS ORDERED: OMNIPAQUE 350 MG/ML, 100ML BOTTLE ONE (14:24)
[2018-07-17 20:24] VITALS: BP 114/74
[2018-07-17 23:06] VITALS: BP 111/75
[2018-07-18 01:09] VITALS: BP 109/69
[2018-07-18] MEDS: HYDROmorphone 2 MG/ML, 1ML IVPush PRN ×3 (03:16→11:24)
[2018-07-18] MEDS: HEPARIN 5,000 UNITS/ML, 1ML SQ SCH (03:40)
[2018-07-18 05:51] LABS: ALANINE AMINOTRANSFERASE 881 U/L (12-78); ALBUMIN 2.4 g/dL (3.4-5.0); ANION GAP 8 mmol/L (5-15); CALCIUM 8.1 mg/dL (8.5-10.1); CHLORIDE 110 mmol/L (98-107); CREATININE 0.44 mg/dL (0.55-1.02)
[2018-07-18 05:54] LABS: ALKALINE PHOSPHATASE 122 U/L (45-117); BILIRUBIN,TOTAL 0.9 mg/dL (0.2-1.0); TOTAL PROTEIN 5.2 g/dL (6.4-8.2)
[2018-07-18] MEDS ORDERED: MAGNESIUM SULFATE PMX 2GM/50ML 50 ML IV ONE (07:00)
[2018-07-18] MEDS ORDERED: ENOXAPARIN 40 MG/0.4 ML SQ SCH (07:00)
[2018-07-18] MEDS: MESALAMINE 800 MG HOMEMEDPO SCH (07:29)
[2018-07-18] MEDS: FLORASTOR 250 MG CAPSULE PO SCH (07:29)
[2018-07-18] MEDS: OMEPRAZOLE 20 MG CAPSULE.DR PO SCH (07:29)
[2018-07-18] MEDS: DOCUSATE 100 MG CAPSULE PO SCH (07:29)
[2018-07-18 07:34] LABS: MEAN CORPUSCULAR HEMOGLOBIN 31.6 pg (27.0-34.8); MEAN CORPUSCULAR HGB CONC 32.3 g/dL (32.4-35.8); MEAN CORPUSCULAR VOLUME 97.6 fL (80-100); RED BLOOD COUNT 3.23 x10^6/uL (3.82-5.3); RED CELL DISTRIBUTION WIDTH 14.7 % (9.6-15.2)
[2018-07-18 07:50] LABS: BASOPHILS # (AUTO) 0.01 x10^3/uL (0-0.1); BASOPHILS % (AUTO) 0 % (0-1); EOSINOPHILS # (AUTO) 0.34 x10^3/uL (0-0.4); EOSINOPHILS % (AUTO) 9 % (1-7); LYMPHOCYTES % (AUTO) 47 % (22-44); MD SCAN; MEAN PLATELET VOLUME 8.6 fL (7.4-10.4); MONOCYTES # (AUTO) 0.36 x10^3/uL (0.2-0.8); MONOCYTES % (AUTO) 9 % (2-9); NEUTROPHILS # (AUTO) 1.46 x10^3/uL (1.8-6.8); NEUTROPHILS % (AUTO) 36 % (42-75); PLATELET COUNT 138 x10^3/uL (130-400)
[2018-07-18 08:24] VITALS: BP 112/66
[2018-07-18] MEDS ORDERED: POTASSIUM CHLORIDE 20 MEQ TAB.ER.PRT PO SCH (09:00)
[2018-07-18] MEDS ORDERED: MAGNESIUM OXIDE 400 MG TABLET PO SCH (09:00)
[2018-07-18] MEDS ORDERED: OXYC5TAB3 PO (09:39)
[2018-07-18] MEDS ORDERED: DOCU-131 PO (09:39)
[2018-07-18] MEDS ORDERED: MAGN400T50 PO (09:39)
[2018-07-19 15:59] LABS: ANA SCREEN NEGATIVE (Negative)
== END 2018-07-18 11:55 | disposition home or self-care (01) | DRG 918 ==
LOC: ED 18:15 → EDIP 21:01 → 3NE 22:01 → DCLOUNGE 07-18 11:45
PROVIDERS: ADMIT Internal Medicine; ATTEND Internal Medicine
DX: T39.1X1A Poisoning by 4-Aminophenol derivatives, accidental (unintentional), initial encounter (principal); B17.9 Acute viral hepatitis, unspecified; E87.0 Hyperosmolality and hypernatremia; K50.90 Crohn's disease, unspecified, without complications; E87.1 Hypo-osmolality and hyponatremia; E83.42 Hypomagnesemia; E87.6 Hypokalemia; F17.210 Nicotine dependence, cigarettes, uncomplicated; I10 Essential (primary) hypertension; Z90.710 Acquired absence of both cervix and uterus; Z90.49 Acquired absence of other specified parts of digestive tract; Z87.442 Personal history of urinary calculi; Z80.0 Family history of malignant neoplasm of digestive organs; Y92.89 Other specified places as the place of occurrence of the external cause; Z88.5 Allergy status to narcotic agent; Z88.8 Allergy status to other drugs, medicaments and biological substances
CPT/HCPCS: 36415; 74022; 74177; 76700; 80048; 80053; 80074; 80307; 80329; 81001; 81025; 82140; 82248; 83690; 83735; 84484; 85025; 85610; 86038; 87086; 90656; 93005; 96361; 96374; 99285; G0378; J0132; J1170; J1644; J1650; J2405; J3010; J3480; J7060; J7070; Q9967; G0480; J3475; J7030; J7040

== ENCOUNTER 2018-07-29 17:27 | Emergency (ER) | payer OTHER ==
[~2018-07-29] VITALS: Ht 167.6 cm; Wt 59.1 kg
[~2018-07-29 17:27] MED LIST changes: +DOCU-131 PO; +MAGN400T50 PO
[2018-07-29 17:45] VITALS: BP 116/75
[2018-07-29] MEDS ORDERED: MECLIZINE CHEWABLE 25 MG TAB PO ONE (18:00)
[2018-07-29] MEDS ORDERED: MAALOX/HYOSCYAMINE/LIDOCAINE 45 ML BTL PO ONE (18:00)
[2018-07-29 19:32] LABS: ANION GAP 9 mmol/L (5-15); CHLORIDE 111 mmol/L (98-107); CREATININE 0.62 mg/dL (0.55-1.02)
[2018-07-29 19:33] LABS: ALBUMIN 3.4 g/dL (3.4-5.0)
[2018-07-29 19:41] LABS: ALANINE AMINOTRANSFERASE 116 U/L (12-78); ALKALINE PHOSPHATASE 102 U/L (45-117); BILIRUBIN,TOTAL 0.9 mg/dL (0.2-1.0); TOTAL PROTEIN 6.4 g/dL (6.4-8.2)
[2018-07-29] MEDS ORDERED: PROMETHAZINE 25 MG/ML, 1ML IM ONE (20:30)
[2018-07-29 20:36] LABS: BASOPHILS # (AUTO) 0.03 x10^3/uL (0-0.1); BASOPHILS % (AUTO) 1 % (0-1); EOSINOPHILS # (AUTO) 0.11 x10^3/uL (0-0.4); EOSINOPHILS % (AUTO) 2 % (1-7); LYMPHOCYTES # (AUTO) 1.75 x10^3/uL (1-3.4); LYMPHOCYTES % (AUTO) 39 % (22-44); MD NO; MEAN CORPUSCULAR HEMOGLOBIN 33.3 pg (27.0-34.8); MEAN CORPUSCULAR HGB CONC 33.7 g/dL (32.4-35.8); MEAN CORPUSCULAR VOLUME 98.8 fL (80-100); MEAN PLATELET VOLUME 7.9 fL (7.4-10.4); MONOCYTES # (AUTO) 0.42 x10^3/uL (0.2-0.8); MONOCYTES % (AUTO) 9 % (2-9); NEUTROPHILS # (AUTO) 2.21 x10^3/uL (1.8-6.8); NEUTROPHILS % (AUTO) 49 % (42-75); PLATELET COUNT 247 x10^3/uL (130-400); RED BLOOD COUNT 3.56 x10^6/uL (3.82-5.3); RED CELL DISTRIBUTION WIDTH 15.6 % (9.6-15.2)
[2018-07-29] MEDS ORDERED: MECLIZINE CHEWABLE 25 MG TAB ONE (20:38)
[2018-07-29] MEDS ORDERED: MAALOX/HYOSCYAMINE/LIDOCAINE 45 ML BTL ONE (20:38)
[2018-07-29] MEDS ORDERED: PROMETHAZINE 25 MG/ML, 1ML ONE (20:38)
[2018-07-29 20:46] LABS: INTERNATIONAL NORMALIZED RATIO 1.14 (0.93-1.1); PROTHROMBIN TIME 11.8 Seconds (9.6-11.5)
== END 2018-07-29 21:23 | disposition left against medical advice (07) ==
LOC: ED 21:15
DX: R10.84 Generalized abdominal pain (principal); R11.2 Nausea with vomiting, unspecified; R42 Dizziness and giddiness; F17.200 Nicotine dependence, unspecified, uncomplicated; G89.29 Other chronic pain; I10 Essential (primary) hypertension
CPT/HCPCS: 36415; 76700; 80053; 83690; 85025; 85610; 93005; 93971; 96372; 99285; J2550

== ENCOUNTER 2018-12-22 19:21 | Emergency (ER) | payer OTHER ==
[~2018-12-22] VITALS: Ht 167.6 cm; Wt 65.5 kg
[2018-12-22 20:25] LABS: BASOPHILS # (AUTO) 0.03 x10^3/uL (0-0.1); BASOPHILS % (AUTO) 1 % (0-1); EOSINOPHILS # (AUTO) 0.02 x10^3/uL (0-0.4); EOSINOPHILS % (AUTO) 0 % (1-7); LYMPHOCYTES # (AUTO) 1.64 x10^3/uL (1-3.4); LYMPHOCYTES % (AUTO) 23 % (22-44); MD NO; MEAN CORPUSCULAR HEMOGLOBIN 30.5 pg (27.0-34.8); MEAN CORPUSCULAR HGB CONC 33.6 g/dL (32.4-35.8); MEAN CORPUSCULAR VOLUME 90.6 fL (80-100); MONOCYTES # (AUTO) 0.55 x10^3/uL (0.2-0.8); MONOCYTES % (AUTO) 8 % (2-9); NEUTROPHILS # (AUTO) 4.83 x10^3/uL (1.8-6.8); NEUTROPHILS % (AUTO) 68 % (42-75); PLATELET COUNT 326 x10^3/uL (130-400); RED BLOOD COUNT 4.28 x10^6/uL (3.82-5.3); RED CELL DISTRIBUTION WIDTH 14.5 % (9.6-15.2)
[2018-12-22 20:32] LABS: ANION GAP 6 mmol/L (5-15); CALCIUM 8.7 mg/dL (8.5-10.1); CHLORIDE 105 mmol/L (98-107); CREATININE 1.16 mg/dL (0.55-1.02)
--- NOTE | 2018-12-22 20:32 | NUR ---
PT REPORTS BILATERAL LOWER QUADRANT ABD PAIN, N/V X THE PAST 5 DAYS. FOUL SMELL TO URINE. DENEIS HX OF UTI. DENIES MUSCLES ACHES OR SORE THROAT. HX OF CHRONES/HERMILA/APPY.
--- NOTE | 2018-12-22 20:49 | NUR ---
RECEIVED REPORT FROM GUNNAR MATHIS TO ASSUME PT. CARE.
[2018-12-22 20:52] LABS: CULTURE INDICATED? YES; MICROSCOPIC INDICATED
[2018-12-22] MEDS ORDERED: ONDANSETRON 2MG/ML, 2ML ONE (20:58)
[2018-12-22] MEDS ORDERED: HYDROmorphone 1 MG/ML, 1ML AMP ONE (20:59)
[2018-12-22] MEDS ORDERED: ONDANSETRON 2MG/ML, 2ML IVPush ONE (21:00)
[2018-12-22] MEDS ORDERED: HYDROmorphone 2 MG/ML, 1ML IVPush PRN (21:00)
[2018-12-22] MEDS ORDERED: SODIUM CHLORIDE 0.9% 1,000ML IVBOLUS ONE (21:00)
[2018-12-22] MEDS ORDERED: SODIUM CHLORIDE FLUSH 10ML SYR IVF ONE (21:00)
--- NOTE | 2018-12-22 21:06 | NUR ---
PIV PLACED/BOLUS/ZOFRAN/DIALUDIUD ADMINISTERED. ON POX. PATIENT CALLED TO PROVIDE RIDE IF DISPO'D. VSS. PRIOR TO PAIN MEDICATION. PAIN REPORTED AT 10/10. IN BED W/ CALL HUNT IN HAND/SIDE RAILS UP. BEDSIDE REPORT TO CLARA MAHER.
--- NOTE | 2018-12-22 21:49 | NUR ---
PT. PROVIDED WITH WATER PER MD ORDER FOR PO CHALLENGE.
[2018-12-22 22:02] VITALS: BP 124/79
== END 2018-12-22 22:02 | disposition home or self-care (01) ==
LOC: ED 21:56
DX: N30.00 Acute cystitis without hematuria (principal); R11.2 Nausea with vomiting, unspecified; F17.200 Nicotine dependence, unspecified, uncomplicated; I10 Essential (primary) hypertension; G89.29 Other chronic pain
CPT/HCPCS: 36415; 80048; 81001; 83690; 85025; 87077; 87086; 87186; 96361; 96374; 96375; 99283; J1170; J2405; J7030

== ENCOUNTER 2019-02-03 19:01 | Emergency (ER) | payer OTHER ==
[~2019-02-03] VITALS: Ht 167.6 cm; Wt 63.4 kg
[2019-02-03 19:06] VITALS: BP 116/67
[2019-02-03 19:47] LABS: HCG UR SG 1.026 (1.003-1.030)
[2019-02-03 19:53] LABS: MICROSCOPIC INDICATED
[2019-02-03 19:54] LABS: CULTURE INDICATED? YES
[2019-02-03 20:17] LABS: BASOPHILS # (AUTO) 0.04 x10^3/uL (0-0.1); BASOPHILS % (AUTO) 1 % (0-1); EOSINOPHILS # (AUTO) 0.17 x10^3/uL (0-0.4); EOSINOPHILS % (AUTO) 4 % (1-7); LYMPHOCYTES # (AUTO) 1.72 x10^3/uL (1-3.4); LYMPHOCYTES % (AUTO) 35 % (22-44); MD NO; MEAN CORPUSCULAR HEMOGLOBIN 29.9 pg (27.0-34.8); MEAN CORPUSCULAR HGB CONC 33.4 g/dL (32.4-35.8); MEAN CORPUSCULAR VOLUME 89.5 fL (80-100); MEAN PLATELET VOLUME 8.1 fL (7.4-10.4); MONOCYTES # (AUTO) 0.36 x10^3/uL (0.2-0.8); MONOCYTES % (AUTO) 7 % (2-9); NEUTROPHILS # (AUTO) 2.61 x10^3/uL (1.8-6.8); NEUTROPHILS % (AUTO) 53 % (42-75); PLATELET COUNT 262 x10^3/uL (130-400); RED BLOOD COUNT 4.16 x10^6/uL (3.82-5.3); RED CELL DISTRIBUTION WIDTH 13.8 % (9.6-15.2)
[2019-02-03 20:30] LABS: ALANINE AMINOTRANSFERASE 18 U/L (12-78); ALBUMIN 3.3 g/dL (3.4-5.0); ANION GAP 7 mmol/L (5-15); CALCIUM 8.3 mg/dL (8.5-10.1); CHLORIDE 106 mmol/L (98-107); CREATININE 0.82 mg/dL (0.55-1.02)
[2019-02-03] MEDS ORDERED: ONDANSETRON ODT 8 MG PO ONE (20:30)
[2019-02-03] MEDS ORDERED: CEFDINIR 300 MG CAPSULE PO ONE (20:30)
[2019-02-03 20:32] LABS: ALKALINE PHOSPHATASE 82 U/L (45-117); BILIRUBIN,TOTAL 0.2 mg/dL (0.2-1.0); TOTAL PROTEIN 6.6 g/dL (6.4-8.2)
[2019-02-03] MEDS ORDERED: ONDANSETRON ODT 4 MG ONE (20:50)
[2019-02-03] MEDS ORDERED: POTASSIUM CHLORIDE 20 MEQ TAB.ER.PRT ONE (20:50)
[2019-02-03] MEDS ORDERED: CEFDINIR 300 MG CAPSULE ONE (20:50)
[2019-02-03] MEDS ORDERED: ONDANSETRON ODT 8 MG ONE (20:54)
[2019-02-03] MEDS ORDERED: POTASSIUM CHLORIDE 20 MEQ TAB.ER.PRT PO ONE (21:00)
== END 2019-02-03 21:34 | disposition home or self-care (01) ==
LOC: ED 19:35
DX: H66.92 Otitis media, unspecified, left ear (principal); N39.0 Urinary tract infection, site not specified; E87.6 Hypokalemia; Z90.710 Acquired absence of both cervix and uterus; Z90.49 Acquired absence of other specified parts of digestive tract
CPT/HCPCS: 36415; 80053; 81001; 81025; 85025; 87077; 87086; 87186; 99284; Q0162

== ENCOUNTER 2019-02-23 17:51 | Emergency (ER) | payer OTHER ==
[~2019-02-23] VITALS: Ht 170.2 cm; Wt 67.2 kg
--- NOTE | 2019-02-23 18:15 | NUR ---
pt to ed for right sided abd pain rad to bilateral flanks x"a few days". pt states was seen twice for same within last month and was prescribed abx. pt states completed 2 separate rounds of abx within last month as prescribed. pt connected to monitors. vss. no needs expressed. awaiting edmd assessment. call light within reach.
[2019-02-23] MEDS ORDERED: ONDANSETRON ODT 4 MG PO ONE (19:00)
[2019-02-23] MEDS ORDERED: HYDROmorphone 1 MG/ML, 1ML INJ IM ONE (19:00)
--- NOTE | 2019-02-23 19:03 | NUR ---
report received from win zarate.
--- NOTE | 2019-02-23 19:04 | NUR ---
REPORT TO GUNNAR LOEV. PT UPSET SHE WASN'T ORDERED AN IV. PT STATING SHE IS NAUSEATED AND WILL VOMIT ANY MEDICATIONS ADMINISTERED. PT EDUCATED THAT ORDERED MEDICATIONS ARE NOT PO. PT RELUCTANLY AGREES TO IM AND SL MEDICATIONS. PT THEN STATES THAT SHE FEELS DEHYDRATED AND ASKED FOR IV FLUIDS. PT EDUCATED THAT RNs CANNOT PRESCRIBE MEDICATIONS, INCLUDING IVF, AND THAT EDPA WILL BE NOTIFIED OF REQUEST. EDPA NOTIFIED. NO NEW ORDERS RECEIVED AT THIS TIME. PT UP SELF TO RR WITH STEADY GAIT TO PROVIDE UA SAMPLE.
[2019-02-23] MEDS ORDERED: ONDANSETRON ODT 4 MG ONE (19:06)
[2019-02-23] MEDS ORDERED: HYDROmorphone 2 MG/ML, 1ML ONE (19:06)
[2019-02-23 19:07] LABS: BASOPHILS # (AUTO) 0.02 x10^3/uL (0-0.1); BASOPHILS % (AUTO) 0 % (0-1); EOSINOPHILS # (AUTO) 0.57 x10^3/uL (0-0.4); EOSINOPHILS % (AUTO) 10 % (1-7); LYMPHOCYTES % (AUTO) 34 % (22-44); MD NO; MEAN CORPUSCULAR HEMOGLOBIN 30.1 pg (27.0-34.8); MEAN CORPUSCULAR HGB CONC 32.7 g/dL (32.4-35.8); MEAN CORPUSCULAR VOLUME 92.1 fL (80-100); MEAN PLATELET VOLUME 7.9 fL (7.4-10.4); MONOCYTES # (AUTO) 0.29 x10^3/uL (0.2-0.8); MONOCYTES % (AUTO) 5 % (2-9); NEUTROPHILS # (AUTO) 2.93 x10^3/uL (1.8-6.8); NEUTROPHILS % (AUTO) 51 % (42-75); PLATELET COUNT 308 x10^3/uL (130-400); RED CELL DISTRIBUTION WIDTH 15.2 % (9.6-15.2)
--- NOTE | 2019-02-23 19:14 | NUR ---
pt medicated per emar. pt tolerated well. pt's aox4. resps even and unlabored.
[2019-02-23 19:20] LABS: ALANINE AMINOTRANSFERASE 20 U/L (12-78); ALBUMIN 3.8 g/dL (3.4-5.0); ANION GAP 11 mmol/L (5-15); CALCIUM 8.4 mg/dL (8.5-10.1); CHLORIDE 113 mmol/L (98-107); CREATININE 0.87 mg/dL (0.55-1.02)
[2019-02-23 19:23] LABS: ALKALINE PHOSPHATASE 85 U/L (45-117); BILIRUBIN,TOTAL 0.5 mg/dL (0.2-1.0); TOTAL PROTEIN 6.7 g/dL (6.4-8.2)
[2019-02-23 19:39] LABS: CULTURE INDICATED? YES; MICROSCOPIC INDICATED
[2019-02-23 20:05] VITALS: BP 112/68
--- NOTE | 2019-02-23 20:09 | NUR ---
pt given dc instructions and scripts. pt educated regarding dc medications. pt's aox4. resps even and unlabored. no acute distress at dc.
== END 2019-02-23 20:08 | disposition home or self-care (01) ==
LOC: ED 20:02
DX: N39.0 Urinary tract infection, site not specified (principal); I10 Essential (primary) hypertension
CPT/HCPCS: 36415; 80053; 81001; 85025; 87086; 96372; 99283; J1170; Q0162

== ENCOUNTER 2019-05-10 11:18 | Inpatient (IN) | payer OTHER ==
[~2019-05-10] VITALS: Ht 167.6 cm; Wt 64.1 kg
[2019-05-13 13:52] VITALS: BP 115/76
== END 2019-05-13 18:20 | disposition home health service (06) | DRG 392 ==
LOC: ED 13:57 → INTOOBSV 15:49 → EDIP 15:49 → 3NE 16:01 → OBSVTOIN 05-11 11:08
PROVIDERS: ADMIT Internal Medicine; ATTEND Internal Medicine
PROC: 0DB98ZX Excision of Duodenum, Via Natural or Artificial Opening Endoscopic, Diagnostic (ICD-10-PCS; principal; 2019-05-12)
PROC: 0DB68ZX Excision of Stomach, Via Natural or Artificial Opening Endoscopic, Diagnostic (ICD-10-PCS; 2019-05-12)
PROC: 0DB58ZX Excision of Esophagus, Via Natural or Artificial Opening Endoscopic, Diagnostic (ICD-10-PCS; 2019-05-12)
DX: K29.00 Acute gastritis without bleeding (principal); F11.20 Opioid dependence, uncomplicated; R47.01 Aphasia; K50.90 Crohn's disease, unspecified, without complications; N39.0 Urinary tract infection, site not specified; K22.2 Esophageal obstruction; R13.10 Dysphagia, unspecified; E87.6 Hypokalemia; G89.29 Other chronic pain; M54.5 Low back pain; I10 Essential (primary) hypertension; R13.19 Other dysphagia; R19.7 Diarrhea, unspecified; Z83.3 Family history of diabetes mellitus; Z87.442 Personal history of urinary calculi; Z90.710 Acquired absence of both cervix and uterus; Z90.49 Acquired absence of other specified parts of digestive tract
CPT/HCPCS: 36415; 71045; 74220; 80048; 80307; 81003; 84132; 85025; 88305; 96374; 96375; 96376; 99285; G0378; J1170; J2405; J2704; J3480; J7040